=== PATIENT | female | born 1940 | race Caucasian/White ===

== ENCOUNTER 2021-06-20 17:26 | Inpatient (IN) | payer MEDICARE ==
[2021-06-20] MEDS ORDERED: Dextrose 50% Abboject 50 ML SYRINGE IVP PRN (20:45)
[2021-06-20] MEDS ORDERED: Dextrose 5% in Water 1,000 ML IV PRN (20:45)
[2021-06-20] MEDS ORDERED: Metoprolol Tartrate 50 MG TAB PO SCH (21:00)
[2021-06-20] MEDS: Lisinopril 20 MG TAB PO SCH (21:15)
[2021-06-20] MEDS: Atorvastatin Calcium 40 MG TAB PO SCH (21:15)
[2021-06-20] MEDS: Apixaban 5 MG TAB PO SCH (21:15)
[2021-06-21] MEDS: HumaLOG 300 UNITS/3 ML VIAL SC PRN ×2 (05:29→15:59)
[2021-06-21 07:42] LABS: #Basophils 0.1 thou/uL (0.0-0.2); #Eosinphils 0.4 thou/uL (0.0-0.7); #Lymphocytes 1.1 thou/uL (1.20-3.40); #Monocytes 0.6 thou/uL (0.11-0.59); #Neutrophils 9.2 thou/uL (1.40-6.50); %Basophils 0.8 % (0.0-1.0); %Eosinophils 3.3 % (0.0-10.0); %Lymphocytes 9.5 % (21.0-51.0); %Monocytes 5.7 % (0.0-10.0); %Neutrophils 80.7 % (42.0-75.0); Hemoglobin 10.8 g/dL (12.0-16.0); Mean Corpuscular HGB CONC 32.2 g/dL (32.0-36.0); Mean Corpuscular Hemoglobin 29.2 pg (27.0-31.0); Mean Corpuscular Volume 90.6 fL (78.0-98.0); Mean Platelet Volume 7.6 fL (7.4-10.4); Platelet Count 306 thou/uL (130-400); RBC Distribution Width 13.6 % (11.5-14.5); Red Blood Cell (RBC) Count 3.69 mill/uL (4.20-5.40); White Blood Cell (WBC) Count 11.3 thou/uL (4.8-10.8)
[2021-06-21 07:56] LABS: ALT (SGPT) 43 U/L (8-55); AST (SGOT) 39 U/L (5-34); Albumin 2.7 g/dL (3.4-4.8); Alkaline Phosphatase 72 U/L (40-110); Anion Gap 12 mmol/L (10-20); BUN (Urea Nitrogen) 29 mg/dL (9.8-20.1); Bilirubin, Total 0.5 mg/dL (0.2-1.2); Calc. Creatinine Clearance 71 mL/min (70-130); Calcium 8.7 mg/dL (7.8-10.44); Carbon Dioxide 22 mmol/L (23-31); Chloride 115 mmol/L (98-107); Globulin 3.4 g/dL (2.4-3.5); Glucose 175 mg/dL (83-110); Potassium 4.1 mmol/L (3.5-5.1); Protein, Total 6.1 g/dL (5.8-8.1); Sodium 145 mmol/L (136-145)
[2021-06-21] MEDS: Lisinopril 20 MG TAB PO SCH ×2 (08:19→21:32)
[2021-06-21] MEDS: Aspirin 325 MG TAB PO SCH (08:19)
[2021-06-21] MEDS: Apixaban 5 MG TAB PO SCH ×2 (08:19→21:30)
[2021-06-21] MEDS: metFORMIN 500 MG TAB PO SCH ×2 (08:19→16:40)
[2021-06-21] MEDS: Famotidine 20 MG TAB PER TUBE SCH (08:25)
[2021-06-21] MEDS: Metoprolol Tartrate 50 MG TAB PER TUBE SCH ×2 (08:25→21:23)
[2021-06-21] MEDS: Acetaminophen 325 MG TAB PO PRN (16:40)
[2021-06-21] MEDS: ALPRAZolam 0.25 MG TAB PER TUBE PRN (16:43)
[2021-06-21] MEDS ORDERED: Diltiazem 125 MG/25 ML ONE (19:13)
[2021-06-21] MEDS ORDERED: Sodium Chloride 0.9% 30 ML ONE (19:14)
[2021-06-21 20:03] LABS: Potassium 4.3 mmol/L (3.5-5.1); Sodium 145 mmol/L (136-145)
[2021-06-21 20:04] LABS: Anion Gap 14 mmol/L (10-20); Calc. Creatinine Clearance 59 mL/min (70-130); Calcium 9.1 mg/dL (7.8-10.44); Carbon Dioxide 18 mmol/L (23-31); Chloride 117 mmol/L (98-107); Glucose 189 mg/dL (83-110)
[2021-06-21 20:05] LABS: ALT (SGPT) 44 U/L (8-55); AST (SGOT) 38 U/L (5-34); Albumin 2.9 g/dL (3.4-4.8); Alkaline Phosphatase 76 U/L (40-110); Bilirubin, Total 0.4 mg/dL (0.2-1.2); Globulin 3.6 g/dL (2.4-3.5); Protein, Total 6.5 g/dL (5.8-8.1)
[2021-06-21 20:06] LABS: BUN (Urea Nitrogen) 40 mg/dL (9.8-20.1)
[2021-06-21 20:19] LABS: #Eosinphils 0.1 thou/uL (0.0-0.7); #Lymphocytes 1.2 thou/uL (1.20-3.40); #Monocytes 0.9 thou/uL (0.11-0.59); #Neutrophils 11.3 thou/uL (1.40-6.50); %Basophils 0.3 % (0.0-1.0); %Eosinophils 0.9 % (0.0-10.0); %Monocytes 6.6 % (0.0-10.0); %Neutrophils 83.2 % (42.0-75.0); Hemoglobin 12.1 g/dL (12.0-16.0); Mean Corpuscular HGB CONC 32.9 g/dL (32.0-36.0); Mean Corpuscular Hemoglobin 29.9 pg (27.0-31.0); Mean Corpuscular Volume 90.8 fL (78.0-98.0); Mean Platelet Volume 7.4 fL (7.4-10.4); Platelet Count 317 thou/uL (130-400); RBC Distribution Width 13.7 % (11.5-14.5); Red Blood Cell (RBC) Count 4.06 mill/uL (4.20-5.40); White Blood Cell (WBC) Count 13.5 thou/uL (4.8-10.8)
[2021-06-21] MEDS: Atorvastatin Calcium 40 MG TAB PO SCH (21:31)
[2021-06-22] MEDS: HumaLOG 300 UNITS/3 ML VIAL SC PRN ×3 (05:12→18:09)
[2021-06-22] MEDS: metFORMIN 500 MG TAB PO SCH ×2 (08:24→16:07)
[2021-06-22] MEDS: Famotidine 20 MG TAB PER TUBE SCH (08:24)
[2021-06-22] MEDS: Apixaban 5 MG TAB PO SCH ×2 (08:25→20:33)
[2021-06-22] MEDS: Lisinopril 20 MG TAB PO SCH ×2 (08:25→20:36)
[2021-06-22] MEDS: Metoprolol Tartrate 50 MG TAB PER TUBE SCH ×2 (08:25→20:30)
[2021-06-22] MEDS: Aspirin 325 MG TAB PO SCH (08:27)
[2021-06-22] MEDS: Sodium Chloride 0.9% 1,000 ML IV SCH ×3 (09:30→11:30)
[2021-06-22] MEDS ORDERED: Amlodipine 5 MG TAB PER TUBE SCH (12:15)
[2021-06-22] MEDS: ALPRAZolam 0.25 MG TAB PER TUBE PRN (18:10)
[2021-06-22] MEDS: Atorvastatin Calcium 40 MG TAB PO SCH (20:36)
[2021-06-23] MEDS: Sodium Chloride 0.9% 1,000 ML IV SCH (03:05)
[2021-06-23 05:42] LABS: Band 11 % (5-11); Eosinophils 3 % (0-10); Hemoglobin 11.3 g/dL (12.0-16.0); Lymphocytes 15 % (21-51); MDiff Complete? YES; Mean Corpuscular HGB CONC 32.1 g/dL (32.0-36.0); Mean Corpuscular Hemoglobin 29.6 pg (27.0-31.0); Mean Corpuscular Volume 92.3 fL (78.0-98.0); Mean Platelet Volume 7.3 fL (7.4-10.4); Monocytes 3 % (0-10); Neutrophil 68 % (42-75); Platelet Count 299 thou/uL (130-400); Platelet Morphology Comment Appears Adequate; Polychromasia SLIGHT = 2-3 cells (100X) (0-2/hpf); RBC Distribution Width 14.1 % (11.5-14.5); Red Blood Cell (RBC) Count 3.82 mill/uL (4.20-5.40); White Blood Cell (WBC) Count 10.7 thou/uL (4.8-10.8)
[2021-06-23 05:48] LABS: Anion Gap 15 mmol/L (10-20); BUN (Urea Nitrogen) 36 mg/dL (9.8-20.1); Calc. Creatinine Clearance 65 mL/min (70-130); Calcium 8.4 mg/dL (7.8-10.44); Carbon Dioxide 19 mmol/L (23-31); Chloride 116 mmol/L (98-107); Glucose 145 mg/dL (83-110); Potassium 4.3 mmol/L (3.5-5.1); Sodium 146 mmol/L (136-145)
[2021-06-23] MEDS: metFORMIN 500 MG TAB PO SCH ×2 (08:21→16:15)
[2021-06-23] MEDS: Aspirin 325 MG TAB PO SCH (08:21)
[2021-06-23] MEDS: Famotidine 20 MG TAB PER TUBE SCH (08:21)
[2021-06-23] MEDS: Metoprolol Tartrate 50 MG TAB PER TUBE SCH ×2 (08:22→21:08)
[2021-06-23] MEDS: Amlodipine 5 MG TAB PER TUBE SCH (08:22)
[2021-06-23] MEDS: Lisinopril 20 MG TAB PO SCH ×2 (08:22→21:07)
[2021-06-23] MEDS: Apixaban 5 MG TAB PO SCH ×2 (08:22→21:07)
[2021-06-23] MEDS ORDERED: HumaLOG 300 UNITS/3 ML VIAL SC PRN (12:21)
[2021-06-23] MEDS: Acetaminophen 325 MG TAB PO PRN (16:14)
[2021-06-23] MEDS: ALPRAZolam 0.25 MG TAB PER TUBE PRN (16:15)
[2021-06-23] MEDS: HumaLOG 300 UNITS/3 ML VIAL SC PRN (18:05)
[2021-06-23] MEDS: Atorvastatin Calcium 40 MG TAB PO SCH (21:07)
[2021-06-23] MEDS: Loperamide HCl 2 MG CAP PO PRN (21:07)
[2021-06-24 00:42] LABS: Base Excess-Venous -3.2 mmol/L (-2.0 to 3.0); Bicarbonate (HCO3v) 21.7 mmol/L (22.0-28.0); CO2 Tension (PvCO2) 37.1 mmHg (42.0-51.0); Calcium, Ionized 1.19 mmol/L (1.15-1.33); Chloride 112 mmol/L (98-107); Hemoglobin - Calc 10.4 g/dL (12.0-16.0); Potassium 4.3 mmol/L (3.5-5.1); Sodium 144 mmol/L (138-145); T. Carbon Dioxide 22.8 mmol/L (22.0-28.0); vO2 Saturation-calc 99.4 % (60.0-85.0)
[2021-06-24] MEDS ORDERED: Furosemide 20 MG/2 ML VIAL SLOW IVP SCH (04:15)
[2021-06-24 06:46] LABS: #Basophils 0.1 thou/uL (0.0-0.2); #Lymphocytes 0.8 thou/uL (1.20-3.40); #Monocytes 0.9 thou/uL (0.11-0.59); #Neutrophils 13.6 thou/uL (1.40-6.50); %Basophils 0.7 % (0.0-1.0); %Eosinophils 0.1 % (0.0-10.0); %Lymphocytes 5.2 % (21.0-51.0); %Monocytes 5.8 % (0.0-10.0); %Neutrophils 88.2 % (42.0-75.0); Mean Corpuscular HGB CONC 31.6 g/dL (32.0-36.0); Mean Corpuscular Hemoglobin 29.6 pg (27.0-31.0); Mean Corpuscular Volume 93.6 fL (78.0-98.0); Mean Platelet Volume 7.4 fL (7.4-10.4); Platelet Count 256 thou/uL (130-400); RBC Distribution Width 14.4 % (11.5-14.5); Red Blood Cell (RBC) Count 3.37 mill/uL (4.20-5.40); White Blood Cell (WBC) Count 15.4 thou/uL (4.8-10.8)
[2021-06-24 07:15] LABS: Anion Gap 15 mmol/L (10-20); BUN (Urea Nitrogen) 46 mg/dL (9.8-20.1); Calc. Creatinine Clearance 59 mL/min (70-130); Calcium 8.8 mg/dL (7.8-10.44); Carbon Dioxide 19 mmol/L (23-31); Chloride 114 mmol/L (98-107); Glucose 161 mg/dL (83-110); Potassium 4.5 mmol/L (3.5-5.1); Sodium 143 mmol/L (136-145)
[2021-06-24] MEDS: Aspirin 325 MG TAB PO SCH (08:40)
[2021-06-24] MEDS: Apixaban 5 MG TAB PO SCH ×2 (08:41→20:47)
[2021-06-24] MEDS: Famotidine 20 MG TAB PER TUBE SCH (08:41)
[2021-06-24] MEDS: Amlodipine 5 MG TAB PER TUBE SCH (08:41)
[2021-06-24] MEDS: metFORMIN 500 MG TAB PO SCH ×2 (08:41→16:23)
[2021-06-24] MEDS: Lisinopril 20 MG TAB PO SCH ×2 (08:41→20:47)
[2021-06-24] MEDS: Metoprolol Tartrate 50 MG TAB PER TUBE SCH ×2 (08:41→20:49)
[2021-06-24] MEDS: cefTRIAXone\\ROCEPHIN 1 GM in Sodium Chloride 0.9% 100 ML IVPB SCH (10:16)
[2021-06-24] MEDS: Atorvastatin Calcium 40 MG TAB PO SCH (20:48)
[2021-06-25] MEDS: HumaLOG 300 UNITS/3 ML VIAL SC PRN ×2 (06:10→16:47)
[2021-06-25 06:28] LABS: #Basophils 0.1 thou/uL (0.0-0.2); #Lymphocytes 0.7 thou/uL (1.20-3.40); #Monocytes 0.8 thou/uL (0.11-0.59); #Neutrophils 14.1 thou/uL (1.40-6.50); %Basophils 0.8 % (0.0-1.0); %Eosinophils 0.1 % (0.0-10.0); %Lymphocytes 4.7 % (21.0-51.0); %Monocytes 5.2 % (0.0-10.0); %Neutrophils 89.2 % (42.0-75.0); Hemoglobin 10.8 g/dL (12.0-16.0); Mean Corpuscular HGB CONC 32.5 g/dL (32.0-36.0); Mean Corpuscular Hemoglobin 29.6 pg (27.0-31.0); Mean Corpuscular Volume 91.2 fL (78.0-98.0); Mean Platelet Volume 7.3 fL (7.4-10.4); Platelet Count 295 thou/uL (130-400); RBC Distribution Width 13.6 % (11.5-14.5); Red Blood Cell (RBC) Count 3.64 mill/uL (4.20-5.40); White Blood Cell (WBC) Count 15.8 thou/uL (4.8-10.8)
[2021-06-25 06:37] LABS: Anion Gap 16 mmol/L (10-20); BUN (Urea Nitrogen) 54 mg/dL (9.8-20.1); Calc. Creatinine Clearance 47 mL/min (70-130); Calcium 9.1 mg/dL (7.8-10.44); Carbon Dioxide 19 mmol/L (23-31); Chloride 114 mmol/L (98-107); Glucose 171 mg/dL (83-110); Sodium 145 mmol/L (136-145)
[2021-06-25] MEDS: Aspirin 325 MG TAB PO SCH (07:54)
[2021-06-25] MEDS: Famotidine 20 MG TAB PER TUBE SCH (07:55)
[2021-06-25] MEDS: metFORMIN 500 MG TAB PO SCH ×2 (07:55→16:46)
[2021-06-25] MEDS: Apixaban 5 MG TAB PO SCH (07:55)
[2021-06-25] MEDS: Lisinopril 20 MG TAB PO SCH ×2 (07:59→20:54)
[2021-06-25] MEDS: Metoprolol Tartrate 50 MG TAB PER TUBE SCH ×2 (07:59→20:54)
[2021-06-25] MEDS: Amlodipine 5 MG TAB PER TUBE SCH (08:02)
[2021-06-25] MEDS: Acetaminophen 325 MG TAB PO PRN (08:11)
[2021-06-25] MEDS: cefTRIAXone\\ROCEPHIN 1 GM in Sodium Chloride 0.9% 100 ML IVPB SCH (09:17)
[2021-06-25] MEDS ORDERED: Promethazine 25 MG TAB PER TUBE PRN (14:58)
[2021-06-25] MEDS: Sodium Chloride 0.9% 1,000 ML IV SCH (20:24)
[2021-06-25] MEDS: Atorvastatin Calcium 40 MG TAB PO SCH (20:55)
[2021-06-25] MEDS: Metamucil PACK PER TUBE SCH (21:00)
[2021-06-26] MEDS: HumaLOG 300 UNITS/3 ML VIAL SC PRN ×3 (05:41→16:22)
[2021-06-26 06:32] LABS: #Basophils 0.1 thou/uL (0.0-0.2); #Monocytes 0.7 thou/uL (0.11-0.59); #Neutrophils 16.9 thou/uL (1.40-6.50); %Basophils 0.5 % (0.0-1.0); %Lymphocytes 5.2 % (21.0-51.0); %Monocytes 3.7 % (0.0-10.0); %Neutrophils 90.7 % (42.0-75.0); Hemoglobin 11.2 g/dL (12.0-16.0); Mean Corpuscular HGB CONC 32.2 g/dL (32.0-36.0); Mean Corpuscular Hemoglobin 29.6 pg (27.0-31.0); Mean Corpuscular Volume 91.7 fL (78.0-98.0); Mean Platelet Volume 7.9 fL (7.4-10.4); Platelet Count 339 thou/uL (130-400); RBC Distribution Width 14.1 % (11.5-14.5); Red Blood Cell (RBC) Count 3.77 mill/uL (4.20-5.40); White Blood Cell (WBC) Count 18.6 thou/uL (4.8-10.8)
[2021-06-26 06:35] LABS: Anion Gap 16 mmol/L (10-20); BUN (Urea Nitrogen) 61 mg/dL (9.8-20.1); Calc. Creatinine Clearance 45 mL/min (70-130); Calcium 9.3 mg/dL (7.8-10.44); Carbon Dioxide 19 mmol/L (23-31); Chloride 114 mmol/L (98-107); Glucose 215 mg/dL (83-110); Potassium 3.7 mmol/L (3.5-5.1); Sodium 145 mmol/L (136-145)
[2021-06-26] MEDS: metFORMIN 500 MG TAB PO SCH ×2 (08:46→16:20)
[2021-06-26] MEDS: Amlodipine 5 MG TAB PER TUBE SCH (08:47)
[2021-06-26] MEDS: Aspirin 325 MG TAB PO SCH (08:47)
[2021-06-26] MEDS: Lisinopril 20 MG TAB PO SCH ×2 (08:48→21:45)
[2021-06-26] MEDS: Metamucil PACK PER TUBE SCH ×2 (08:48→21:46)
[2021-06-26] MEDS: Famotidine 20 MG TAB PER TUBE SCH ×2 (08:48→21:46)
[2021-06-26] MEDS: Metoprolol Tartrate 50 MG TAB PER TUBE SCH ×2 (08:48→21:45)
[2021-06-26] MEDS: cefTRIAXone\\ROCEPHIN 1 GM in Sodium Chloride 0.9% 100 ML IVPB SCH (08:49)
[2021-06-26] MEDS: Acetaminophen 325 MG TAB PO PRN (16:20)
[2021-06-26] MEDS: Apixaban 5 MG TAB PO SCH (21:45)
[2021-06-26] MEDS: ALPRAZolam 0.25 MG TAB PER TUBE PRN (21:45)
[2021-06-26] MEDS: Atorvastatin Calcium 40 MG TAB PO SCH (21:46)
[2021-06-27] MEDS: Acetaminophen 325 MG TAB PO PRN ×2 (01:05→20:09)
[2021-06-27 06:26] LABS: #Basophils 0.1 thou/uL (0.0-0.2); #Eosinphils 0.1 thou/uL (0.0-0.7); #Lymphocytes 1.4 thou/uL (1.20-3.40); #Neutrophils 15.4 thou/uL (1.40-6.50); %Basophils 0.7 % (0.0-1.0); %Eosinophils 0.4 % (0.0-10.0); %Lymphocytes 7.7 % (21.0-51.0); %Monocytes 5.6 % (0.0-10.0); %Neutrophils 85.6 % (42.0-75.0); Hemoglobin 9.6 g/dL (12.0-16.0); Mean Corpuscular Hemoglobin 29.9 pg (27.0-31.0); Mean Corpuscular Volume 90.8 fL (78.0-98.0); Mean Platelet Volume 7.4 fL (7.4-10.4); Platelet Count 317 thou/uL (130-400); RBC Distribution Width 13.8 % (11.5-14.5); Red Blood Cell (RBC) Count 3.19 mill/uL (4.20-5.40)
[2021-06-27] MEDS: HumaLOG 300 UNITS/3 ML VIAL SC PRN (06:35)
[2021-06-27 06:37] LABS: Anion Gap 13 mmol/L (10-20); BUN (Urea Nitrogen) 77 mg/dL (9.8-20.1); Calc. Creatinine Clearance 41 mL/min (70-130); Calcium 8.7 mg/dL (7.8-10.44); Carbon Dioxide 20 mmol/L (23-31); Chloride 112 mmol/L (98-107); Glucose 166 mg/dL (83-110); Potassium 3.4 mmol/L (3.5-5.1); Sodium 142 mmol/L (136-145)
[2021-06-27] MEDS: Metoprolol Tartrate 50 MG TAB PER TUBE SCH ×2 (09:09→21:41)
[2021-06-27] MEDS: Aspirin 325 MG TAB PO SCH (09:09)
[2021-06-27] MEDS: Apixaban 5 MG TAB PO SCH ×2 (09:09→21:42)
[2021-06-27] MEDS: Amlodipine 5 MG TAB PER TUBE SCH (09:10)
[2021-06-27] MEDS: Lisinopril 20 MG TAB PO SCH (09:10)
[2021-06-27] MEDS: metFORMIN 500 MG TAB PO SCH (09:10)
[2021-06-27] MEDS: Metamucil PACK PER TUBE SCH ×2 (09:12→21:42)
[2021-06-27] MEDS ORDERED: Acetaminophen 325 MG TAB PER TUBE PRN (20:02)
[2021-06-27] MEDS ORDERED: Digoxin 0.125 MG TAB PER TUBE SCH (20:15)
[2021-06-27] MEDS: Famotidine 20 MG TAB PER TUBE SCH (21:42)
[2021-06-27] MEDS: Atorvastatin Calcium 40 MG TAB PO SCH (21:42)
[2021-06-28 06:23] LABS: #Basophils 0.1 thou/uL (0.0-0.2); #Lymphocytes 1.1 thou/uL (1.20-3.40); #Monocytes 0.8 thou/uL (0.11-0.59); #Neutrophils 13.7 thou/uL (1.40-6.50); %Basophils 0.5 % (0.0-1.0); %Eosinophils 0.1 % (0.0-10.0); %Lymphocytes 6.8 % (21.0-51.0); %Neutrophils 87.6 % (42.0-75.0); Hemoglobin 9.3 g/dL (12.0-16.0); Mean Corpuscular HGB CONC 33.1 g/dL (32.0-36.0); Mean Corpuscular Hemoglobin 29.7 pg (27.0-31.0); Mean Corpuscular Volume 89.8 fL (78.0-98.0); Mean Platelet Volume 7.3 fL (7.4-10.4); Platelet Count 346 thou/uL (130-400); RBC Distribution Width 13.4 % (11.5-14.5); Red Blood Cell (RBC) Count 3.13 mill/uL (4.20-5.40); White Blood Cell (WBC) Count 15.6 thou/uL (4.8-10.8)
[2021-06-28 06:37] LABS: Anion Gap 15 mmol/L (10-20)
[2021-06-28 06:55] LABS: BUN (Urea Nitrogen) 101 mg/dL (9.8-20.1); Calc. Creatinine Clearance 21 mL/min (70-130); Calcium 8.5 mg/dL (7.8-10.44); Carbon Dioxide 19 mmol/L (23-31); Chloride 111 mmol/L (98-107); Glucose 180 mg/dL (83-110); Potassium 4.2 mmol/L (3.5-5.1); Sodium 141 mmol/L (136-145)
[2021-06-28] MEDS ORDERED: Lisinopril 20 MG TAB PO SCH (09:00)
[2021-06-28] MEDS: Apixaban 5 MG TAB PO SCH (09:48)
[2021-06-28] MEDS: Metamucil PACK PER TUBE SCH (09:48)
[2021-06-28] MEDS: Aspirin 325 MG TAB PO SCH (09:48)
[2021-06-28] MEDS: metFORMIN 500 MG TAB PER TUBE SCH (09:48)
[2021-06-28] MEDS: Metoprolol Tartrate 50 MG TAB PER TUBE SCH ×2 (09:49→20:50)
[2021-06-28] MEDS: Amlodipine 5 MG TAB PER TUBE SCH (09:50)
[2021-06-28] MEDS: Sodium Chloride 0.9% 1,000 ML IV SCH ×2 (09:57→20:50)
[2021-06-28] MEDS: HumaLOG 300 UNITS/3 ML VIAL SC PRN ×2 (12:06→17:13)
[2021-06-28] MEDS ORDERED: Acetaminophen 325 MG TAB PER TUBE PRN (12:12)
[2021-06-28] MEDS: Atorvastatin Calcium 40 MG TAB PO SCH (20:50)
[2021-06-28] MEDS: Famotidine 20 MG TAB PER TUBE SCH (20:50)
[2021-06-29 05:35] LABS: #Basophils 0.1 thou/uL (0.0-0.2); #Eosinphils 0.1 thou/uL (0.0-0.7); #Lymphocytes 1.1 thou/uL (1.20-3.40); #Monocytes 0.7 thou/uL (0.11-0.59); #Neutrophils 9.5 thou/uL (1.40-6.50); %Basophils 0.5 % (0.0-1.0); %Eosinophils 0.8 % (0.0-10.0); %Lymphocytes 9.6 % (21.0-51.0); %Monocytes 6.2 % (0.0-10.0); %Neutrophils 82.9 % (42.0-75.0); Mean Corpuscular HGB CONC 32.8 g/dL (32.0-36.0); Mean Corpuscular Hemoglobin 29.8 pg (27.0-31.0); Mean Platelet Volume 7.5 fL (7.4-10.4); Platelet Count 368 thou/uL (130-400); RBC Distribution Width 13.8 % (11.5-14.5); Red Blood Cell (RBC) Count 3.03 mill/uL (4.20-5.40); White Blood Cell (WBC) Count 11.5 thou/uL (4.8-10.8)
[2021-06-29 05:51] LABS: Anion Gap 13 mmol/L (10-20)
[2021-06-29 05:55] LABS: BUN (Urea Nitrogen) 58 mg/dL (9.8-20.1); Calc. Creatinine Clearance 56 mL/min (70-130); Calcium 8.1 mg/dL (7.8-10.44); Carbon Dioxide 20 mmol/L (23-31); Chloride 119 mmol/L (98-107); Glucose 165 mg/dL (83-110); Potassium 3.9 mmol/L (3.5-5.1); Sodium 148 mmol/L (136-145)
[2021-06-29] MEDS: Metoprolol Tartrate 50 MG TAB PER TUBE SCH ×2 (08:17→21:00)
[2021-06-29] MEDS: Aspirin 325 MG TAB PO SCH (08:17)
[2021-06-29] MEDS: metFORMIN 500 MG TAB PER TUBE SCH (08:17)
[2021-06-29] MEDS: Amlodipine 5 MG TAB PER TUBE SCH (08:18)
[2021-06-29] MEDS: Sodium Chloride 0.9% 1,000 ML IV SCH (11:22)
[2021-06-29] MEDS: HumaLOG 300 UNITS/3 ML VIAL SC PRN (11:22)
[2021-06-29] MEDS: Atorvastatin Calcium 40 MG TAB PO SCH (20:59)
[2021-06-29] MEDS: Famotidine 20 MG TAB PER TUBE SCH (21:00)
[2021-06-30] MEDS: Metoprolol Tartrate 50 MG TAB PER TUBE SCH ×2 (08:10→20:28)
[2021-06-30] MEDS: Amlodipine 5 MG TAB PER TUBE SCH (08:11)
[2021-06-30] MEDS: metFORMIN 500 MG TAB PER TUBE SCH (08:12)
[2021-06-30 11:50] LABS: #Basophils 0.1 thou/uL (0.0-0.2); #Eosinphils 0.2 thou/uL (0.0-0.7); #Lymphocytes 1.3 thou/uL (1.20-3.40); #Monocytes 0.7 thou/uL (0.11-0.59); #Neutrophils 7.7 thou/uL (1.40-6.50); %Basophils 0.9 % (0.0-1.0); %Eosinophils 1.6 % (0.0-10.0); %Lymphocytes 12.7 % (21.0-51.0); %Monocytes 7.5 % (0.0-10.0); %Neutrophils 77.5 % (42.0-75.0); Hemoglobin 9.2 g/dL (12.0-16.0); Mean Corpuscular HGB CONC 31.9 g/dL (32.0-36.0); Mean Corpuscular Hemoglobin 29.2 pg (27.0-31.0); Mean Corpuscular Volume 91.5 fL (78.0-98.0); Platelet Count 436 thou/uL (130-400); RBC Distribution Width 14.1 % (11.5-14.5); Red Blood Cell (RBC) Count 3.15 mill/uL (4.20-5.40); White Blood Cell (WBC) Count 9.9 thou/uL (4.8-10.8)
[2021-06-30 12:08] LABS: Anion Gap 11 mmol/L (10-20); BUN (Urea Nitrogen) 33 mg/dL (9.8-20.1); Calc. Creatinine Clearance 90 mL/min (70-130); Calcium 7.8 mg/dL (7.8-10.44); Carbon Dioxide 22 mmol/L (23-31); Chloride 123 mmol/L (98-107); Glucose 168 mg/dL (83-110); Potassium 3.2 mmol/L (3.5-5.1); Sodium 153 mmol/L (136-145)
[2021-06-30] MEDS: HumaLOG 300 UNITS/3 ML VIAL SC PRN ×2 (12:36→17:28)
[2021-06-30] MEDS: Nystatin 500,000 UNITS/5 ML UDCUP PO SCH ×2 (17:17→20:28)
[2021-06-30] MEDS: Atorvastatin Calcium 40 MG TAB PO SCH (20:28)
[2021-06-30] MEDS: Famotidine 20 MG TAB PER TUBE SCH (20:28)
[2021-07-01 06:35] LABS: #Basophils 0.1 thou/uL (0.0-0.2); #Eosinphils 0.2 thou/uL (0.0-0.7); #Lymphocytes 1.6 thou/uL (1.20-3.40); #Monocytes 0.7 thou/uL (0.11-0.59); %Basophils 0.8 % (0.0-1.0); %Eosinophils 1.7 % (0.0-10.0); %Lymphocytes 16.5 % (21.0-51.0); %Monocytes 7.4 % (0.0-10.0); %Neutrophils 73.6 % (42.0-75.0); Hemoglobin 9.5 g/dL (12.0-16.0); Mean Corpuscular HGB CONC 31.7 g/dL (32.0-36.0); Mean Corpuscular Hemoglobin 29.4 pg (27.0-31.0); Mean Corpuscular Volume 92.7 fL (78.0-98.0); Mean Platelet Volume 6.8 fL (7.4-10.4); Platelet Count 432 thou/uL (130-400); RBC Distribution Width 13.7 % (11.5-14.5); Red Blood Cell (RBC) Count 3.22 mill/uL (4.20-5.40); White Blood Cell (WBC) Count 9.6 thou/uL (4.8-10.8)
[2021-07-01 06:45] LABS: Anion Gap 11 mmol/L (10-20); BUN (Urea Nitrogen) 29 mg/dL (9.8-20.1); Calc. Creatinine Clearance 91 mL/min (70-130); Carbon Dioxide 23 mmol/L (23-31); Chloride 121 mmol/L (98-107); Glucose 183 mg/dL (83-110); Sodium 152 mmol/L (136-145)
[2021-07-01 07:23] LABS: Potassium 2.8 mmol/L (3.5-5.1)
[2021-07-01] MEDS: Metoprolol Tartrate 50 MG TAB PER TUBE SCH ×2 (08:01→21:55)
[2021-07-01] MEDS: Nystatin 500,000 UNITS/5 ML UDCUP PO SCH ×4 (08:01→21:54)
[2021-07-01] MEDS: metFORMIN 500 MG TAB PER TUBE SCH (08:02)
[2021-07-01] MEDS: Amlodipine 5 MG TAB PER TUBE SCH (08:02)
[2021-07-01] MEDS: 1/2 NS w/KCL 20 mEq 1,000 ML IV SCH (13:47)
[2021-07-01] MEDS: Famotidine 20 MG TAB PER TUBE SCH (21:54)
[2021-07-01] MEDS: Atorvastatin Calcium 40 MG TAB PO SCH (21:54)
[2021-07-01] MEDS: Lisinopril 5 MG TAB PO SCH (21:55)
[2021-07-01] MEDS: Loperamide HCl 2 MG CAP PO PRN (22:28)
[2021-07-02] MEDS: 1/2 NS w/KCL 20 mEq 1,000 ML IV SCH ×2 (03:12→18:18)
[2021-07-02 06:40] LABS: Anion Gap 11 mmol/L (10-20); BUN (Urea Nitrogen) 25 mg/dL (9.8-20.1); Calc. Creatinine Clearance 88 mL/min (70-130); Calcium 7.9 mg/dL (7.8-10.44); Carbon Dioxide 21 mmol/L (23-31); Chloride 122 mmol/L (98-107); Glucose 163 mg/dL (83-110); Potassium 3.9 mmol/L (3.5-5.1); Sodium 150 mmol/L (136-145)
[2021-07-02] MEDS: Nystatin 500,000 UNITS/5 ML UDCUP PO SCH ×4 (08:19→21:05)
[2021-07-02] MEDS: metFORMIN 500 MG TAB PER TUBE SCH (08:19)
[2021-07-02] MEDS: Metoprolol Tartrate 50 MG TAB PER TUBE SCH ×2 (08:20→21:06)
[2021-07-02] MEDS: Amlodipine 5 MG TAB PER TUBE SCH (08:21)
[2021-07-02] MEDS: Lisinopril 5 MG TAB PO SCH ×2 (08:21→21:05)
[2021-07-02] MEDS: Atorvastatin Calcium 40 MG TAB PO SCH (21:06)
[2021-07-02] MEDS: Famotidine 20 MG TAB PER TUBE SCH (21:06)
[2021-07-02] MEDS: Loperamide HCl 2 MG CAP PO SCH (21:06)
[2021-07-03 06:42] LABS: Anion Gap 11 mmol/L (10-20); BUN (Urea Nitrogen) 18 mg/dL (9.8-20.1); Calc. Creatinine Clearance 99 mL/min (70-130); Calcium 7.7 mg/dL (7.8-10.44); Carbon Dioxide 21 mmol/L (23-31); Chloride 117 mmol/L (98-107); Glucose 142 mg/dL (83-110); Sodium 145 mmol/L (136-145)
[2021-07-03] MEDS: Metoprolol Tartrate 50 MG TAB PER TUBE SCH ×2 (09:28→20:45)
[2021-07-03] MEDS: Nystatin 500,000 UNITS/5 ML UDCUP PO SCH ×4 (09:28→20:50)
[2021-07-03] MEDS: Lisinopril 5 MG TAB PO SCH ×2 (09:28→20:44)
[2021-07-03] MEDS: Amlodipine 5 MG TAB PER TUBE SCH (09:28)
[2021-07-03] MEDS: metFORMIN 500 MG TAB PER TUBE SCH (09:29)
[2021-07-03] MEDS: Loperamide HCl 2 MG CAP PO SCH ×2 (09:33→20:44)
[2021-07-03] MEDS: 1/2 NS w/KCL 20 mEq 1,000 ML IV SCH (10:24)
[2021-07-03] MEDS: Famotidine 20 MG TAB PER TUBE SCH (20:44)
[2021-07-03] MEDS: Atorvastatin Calcium 40 MG TAB PO SCH (20:44)
[2021-07-04 06:27] LABS: #Basophils 0.1 thou/uL (0.0-0.2); #Eosinphils 0.3 thou/uL (0.0-0.7); #Lymphocytes 2.1 thou/uL (1.20-3.40); #Monocytes 0.5 thou/uL (0.11-0.59); #Neutrophils 9.5 thou/uL (1.40-6.50); %Basophils 0.5 % (0.0-1.0); %Eosinophils 2.3 % (0.0-10.0); %Lymphocytes 16.9 % (21.0-51.0); %Monocytes 4.3 % (0.0-10.0); Hemoglobin 9.6 g/dL (12.0-16.0); Mean Corpuscular HGB CONC 32.3 g/dL (32.0-36.0); Mean Corpuscular Hemoglobin 29.5 pg (27.0-31.0); Mean Corpuscular Volume 91.4 fL (78.0-98.0); Mean Platelet Volume 6.8 fL (7.4-10.4); Platelet Count 342 thou/uL (130-400); RBC Distribution Width 14.2 % (11.5-14.5); Red Blood Cell (RBC) Count 3.26 mill/uL (4.20-5.40); White Blood Cell (WBC) Count 12.5 thou/uL (4.8-10.8)
[2021-07-04 06:37] LABS: Anion Gap 10 mmol/L (10-20); BUN (Urea Nitrogen) 14 mg/dL (9.8-20.1); Calc. Creatinine Clearance 110 mL/min (70-130); Calcium 7.6 mg/dL (7.8-10.44); Carbon Dioxide 22 mmol/L (23-31); Chloride 111 mmol/L (98-107); Glucose 137 mg/dL (83-110); Potassium 3.8 mmol/L (3.5-5.1); Sodium 139 mmol/L (136-145)
[2021-07-04] MEDS: Loperamide HCl 2 MG CAP PO SCH ×2 (08:50→20:25)
[2021-07-04] MEDS: metFORMIN 500 MG TAB PER TUBE SCH (08:50)
[2021-07-04] MEDS: Nystatin 500,000 UNITS/5 ML UDCUP PO SCH ×4 (08:50→20:26)
[2021-07-04] MEDS: Amlodipine 5 MG TAB PER TUBE SCH (08:50)
[2021-07-04] MEDS: Metoprolol Tartrate 50 MG TAB PER TUBE SCH ×2 (08:51→20:26)
[2021-07-04] MEDS: Lisinopril 5 MG TAB PO SCH ×2 (08:52→20:26)
[2021-07-04] MEDS: Atorvastatin Calcium 40 MG TAB PO SCH (20:24)
[2021-07-04] MEDS: Famotidine 20 MG TAB PER TUBE SCH (20:25)
[2021-07-05 06:25] LABS: Anion Gap 11 mmol/L (10-20); BUN (Urea Nitrogen) 14 mg/dL (9.8-20.1); Calc. Creatinine Clearance 112 mL/min (70-130); Calcium 7.7 mg/dL (7.8-10.44); Carbon Dioxide 23 mmol/L (23-31); Chloride 109 mmol/L (98-107); Glucose 125 mg/dL (83-110); Potassium 3.8 mmol/L (3.5-5.1); Sodium 139 mmol/L (136-145)
[2021-07-05] MEDS: Nystatin 500,000 UNITS/5 ML UDCUP PO SCH ×3 (09:01→17:07)
[2021-07-05] MEDS: Metoprolol Tartrate 50 MG TAB PER TUBE SCH ×2 (09:01→20:50)
[2021-07-05] MEDS: Lisinopril 5 MG TAB PO SCH ×2 (09:01→20:49)
[2021-07-05] MEDS: metFORMIN 500 MG TAB PER TUBE SCH (09:02)
[2021-07-05] MEDS: Amlodipine 5 MG TAB PER TUBE SCH (09:02)
[2021-07-05] MEDS: Loperamide HCl 2 MG CAP PO SCH ×2 (09:02→20:49)
[2021-07-05] MEDS: Famotidine 20 MG TAB PER TUBE SCH (20:50)
[2021-07-05] MEDS: Atorvastatin Calcium 40 MG TAB PO SCH (20:51)
[2021-07-06] MEDS: Lisinopril 5 MG TAB PO SCH ×2 (09:28→20:16)
[2021-07-06] MEDS: Amlodipine 5 MG TAB PER TUBE SCH (09:29)
[2021-07-06] MEDS: metFORMIN 500 MG TAB PER TUBE SCH (09:29)
[2021-07-06] MEDS: Metoprolol Tartrate 50 MG TAB PER TUBE SCH ×2 (09:29→20:15)
[2021-07-06] MEDS: Loperamide HCl 2 MG CAP PO SCH ×2 (09:39→20:17)
[2021-07-06] MEDS: Famotidine 20 MG TAB PER TUBE SCH (20:16)
[2021-07-06] MEDS: Atorvastatin Calcium 40 MG TAB PO SCH (20:16)
[2021-07-07 05:20] LABS: #Eosinphils 0.1 thou/uL (0.0-0.7); #Lymphocytes 1.5 thou/uL (1.20-3.40); #Monocytes 0.5 thou/uL (0.11-0.59); #Neutrophils 5.3 thou/uL (1.40-6.50); %Basophils 0.6 % (0.0-1.0); %Eosinophils 1.3 % (0.0-10.0); %Lymphocytes 19.9 % (21.0-51.0); %Monocytes 6.5 % (0.0-10.0); %Neutrophils 71.7 % (42.0-75.0); Mean Corpuscular HGB CONC 32.6 g/dL (32.0-36.0); Mean Corpuscular Hemoglobin 29.7 pg (27.0-31.0); Platelet Count 263 thou/uL (130-400); RBC Distribution Width 14.3 % (11.5-14.5); Red Blood Cell (RBC) Count 3.37 mill/uL (4.20-5.40); White Blood Cell (WBC) Count 7.4 thou/uL (4.8-10.8)
[2021-07-07 05:32] LABS: Anion Gap 11 mmol/L (10-20); BUN (Urea Nitrogen) 14 mg/dL (9.8-20.1); Calc. Creatinine Clearance 103 mL/min (70-130); Calcium 7.9 mg/dL (7.8-10.44); Carbon Dioxide 23 mmol/L (23-31); Chloride 106 mmol/L (98-107); Glucose 150 mg/dL (83-110); Potassium 4.2 mmol/L (3.5-5.1); Sodium 136 mmol/L (136-145)
[2021-07-07] MEDS: Lisinopril 5 MG TAB PO SCH ×2 (09:37→20:22)
[2021-07-07] MEDS: metFORMIN 500 MG TAB PER TUBE SCH (09:37)
[2021-07-07] MEDS: Amlodipine 5 MG TAB PER TUBE SCH (09:37)
[2021-07-07] MEDS: Metoprolol Tartrate 50 MG TAB PER TUBE SCH ×2 (09:38→20:22)
[2021-07-07] MEDS: Loperamide HCl 2 MG CAP PO SCH ×2 (09:38→20:23)
[2021-07-07 16:31] VITALS: BMI 34.0
[2021-07-07] MEDS: Famotidine 20 MG TAB PER TUBE SCH (20:22)
[2021-07-07] MEDS: Atorvastatin Calcium 40 MG TAB PO SCH (20:22)
[2021-07-08] MEDS: Metoprolol Tartrate 50 MG TAB PER TUBE SCH ×2 (08:55→21:23)
[2021-07-08] MEDS: Lisinopril 5 MG TAB PO SCH ×2 (08:57→21:22)
[2021-07-08] MEDS: metFORMIN 500 MG TAB PER TUBE SCH (08:57)
[2021-07-08] MEDS: Loperamide HCl 2 MG CAP PO SCH ×2 (08:57→21:22)
[2021-07-08] MEDS: Amlodipine 5 MG TAB PER TUBE SCH (08:57)
[2021-07-08] MEDS: Atorvastatin Calcium 40 MG TAB PO SCH (21:22)
[2021-07-08] MEDS: Famotidine 20 MG TAB PER TUBE SCH (21:22)
[2021-07-09] MEDS: Lisinopril 5 MG TAB PO SCH ×2 (09:28→20:48)
[2021-07-09] MEDS: metFORMIN 500 MG TAB PER TUBE SCH (09:29)
[2021-07-09] MEDS: Loperamide HCl 2 MG CAP PO SCH ×2 (09:29→20:49)
[2021-07-09] MEDS: Metoprolol Tartrate 50 MG TAB PER TUBE SCH ×2 (09:29→20:49)
[2021-07-09] MEDS: HumaLOG 300 UNITS/3 ML VIAL SC PRN (12:39)
[2021-07-09] MEDS: Atorvastatin Calcium 40 MG TAB PO SCH (20:49)
[2021-07-09] MEDS: Famotidine 20 MG TAB PER TUBE SCH (20:49)
[2021-07-10 08:25] VITALS: BP 117/73; TEMP 98.8
[2021-07-10] MEDS: Metoprolol Tartrate 50 MG TAB PER TUBE SCH (09:28)
[2021-07-10] MEDS: Lisinopril 5 MG TAB PO SCH (09:29)
[2021-07-10] MEDS: metFORMIN 500 MG TAB PER TUBE SCH (09:30)
[2021-07-10] MEDS: Loperamide HCl 2 MG CAP PO SCH (09:30)
== END 2021-07-10 13:25 | disposition hospice, home (50) | DRG 56 ==
LOC: NAV ACUTE 17:26 → UNDOADMIN 17:26
PROVIDERS: ADMIT Internal Medicine; ATTEND Internal Medicine
DX: I69.351 Hemiplegia and hemiparesis following cerebral infarction affecting right dominant side (principal); J69.0 Pneumonitis due to inhalation of food and vomit; J96.01 Acute respiratory failure with hypoxia; U07.1 COVID-19; N39.0 Urinary tract infection, site not specified; K92.2 Gastrointestinal hemorrhage, unspecified; N17.9 Acute kidney failure, unspecified; E87.1 Hypo-osmolality and hyponatremia; I10 Essential (primary) hypertension; E11.9 Type 2 diabetes mellitus without complications; E78.5 Hyperlipidemia, unspecified; M19.90 Unspecified osteoarthritis, unspecified site; B96.20 Unspecified Escherichia coli [E. coli] as the cause of diseases classified elsewhere; L89.152 Pressure ulcer of sacral region, stage 2; I48.0 Paroxysmal atrial fibrillation; R13.10 Dysphagia, unspecified; Z90.49 Acquired absence of other specified parts of digestive tract; Z90.710 Acquired absence of both cervix and uterus; Z79.82 Long term (current) use of aspirin; Z79.899 Other long term (current) drug therapy; I69.320 Aphasia following cerebral infarction
CPT/HCPCS: 36415; 36416; 70450; 71045; 80048; 80053; 82330; 82803; 83880; 84484; 85007; 85025; 85027; 94640; 97602; J0696; J1815; J1940; J1956; J3480; J3490; J7050; J7620; Q0169